=== PATIENT | male | born 2000 | race Caucasian/White ===

== ENCOUNTER 2022-12-10 22:42 | Emergency (ER) | payer BC, SELFPAY ==
[2022-12-10 22:44] VITALS: BP 140/78; PULSE 82; RESP 18; TEMP 37.4; O2SAT 97; BMI 23.6
[2022-12-10 23:38] VITALS: BP 119/60; PULSE 80; RESP 18; TEMP 36.6; O2SAT 98
--- NOTE | 2022-12-11 00:04 | ED_ITS ---
HPI - Dental/Oral General Chief complaint: Dental/Oral Stated complaint: dental pain Time Seen by Provider: 12/10/22 23:41 Source: patient Mode of arrival: ambulatory Limitations: no limitations History of Present Illness HPI Narrative: This is a 22-year-old male presenting with pain to his lower right molar X 3 weeks worsening over the past few days. Patient tells me that this pain has been boring in nature however over the past few days has become slightly more persistent. Patient tells me he has a known cavity to that tooth. Denies any direct trauma to this tooth. Denies difficulty opening his mouth, changes in voice, changes in speech or difficulty controlling secretions. He tells me he has had an upper respiratory infection for the past few weeks which he is being treated for with a Z-Babar by his health services at school. Denies fevers, chills, chest pain, shortness of breath, nausea, vomiting. Related Data Previous Rx's Medication Instructions Recorded amoxicillin 875 mg-potassium 1 tab PO BID 10 days #20 tabs 12/11/22 clavulanate 125 mg tablet prednisone 20 mg tablet 40 mg PO DAILY 5 days #10 tabs 12/11/22 Allergies Allergy/AdvReac Type Severity Reaction Status Date / Time shellfish derived Allergy Unknown Verified 12/10/22 22:49 Review of Systems Review of Systems: Constitutional : No Weight loss, No Fever, No Chills, No Fatigue, No Malaise ENT/Mouth : No sore throat, No Rhinorrhea, + tooth pain Eyes: No Eye Pain, No Swelling, No Redness Cardiovascular : No Chest Pain, No SOB, No Dyspnea on Exertion, No Orthopnea, No Edema, No Palpitations Respiratory : No Cough, No Sputum, No Wheezing Gastrointestinal : No Nausea, No Vomiting, No Diarrhea, No Constipation, No abdominal Pain, No Hematochezia, No Melena Genitourinary : No Dysuria, No Urinary Frequency, No Hematuria, Musculoskeletal : No joint pain, No Myalgias, No Joint Swelling Skin : No Skin Lesions, No rash Neuro : No Weakness, No Numbness, No Dizziness, No Headache Psych : No Anxiety/Panic, No Depression All other systems reviewed and are negative Yes all other systems are reviewed and are negative PMFSH Past Medical History Attestation statement: The following information was validated with the patient. Source: old records reviewed and nursing notes reviewed Social History Social History Advance Directives: No Advance Directives Information Provided: Yes Physical Exam Vital Signs: Vital Signs: Last Vital Signs Temp 97.9 F 12/10/22 23:38 Pulse 80 12/10/22 23:38 Resp 18 12/10/22 23:38 BP 119/60 12/10/22 23:38 Pulse Ox 98 12/10/22 23:38 O2 Del Method 12/10/22 23:38 BMI result Body Mass Index 23.6 vss Appearance: Alert.? Oriented X3.? No acute distress.? Patient speaking in full sentences controlling secretions well. Head: Normocephalic, atraumatic, no step-offs or deformities Eyes: Pupils equal, round and reactive to light.? ENT: Pharynx normal.?No trismus. Midline uvula. B/l tonsils enlarge no exudates. Controlling secretions well. + dental abcess to right lower first molar. Neck: Normal inspection.? Neck supple.? CVS: Normal heart rate and rhythm.? Pulses normal.? Respiratory: No respiratory distress.? Breath sounds normal.? Abdomen: Soft and nontender.? Skin: Skin warm and dry.? Normal skin color.? Normal skin turgor.? Extremities: No lower extremity edema.? No calf ttp. 5/5 strength to bilateral upper and lower extremities Neuro: Oriented X 3.? No motor deficit.? No sensory deficit. CN 2-12 intact Course Reevaluation(s) Reevaluation #1: Fine-needle aspiration successfully done 2 -3 cc purulence serosanguineous fluid expressed., improvement in dental abscess, patient will be discharged home on Augmentin. Advised for him to follow-up with dentist in follow-up with PCP within the next 1-3 days. Advised return with new or worsening symptoms, educated on worrisome signs and symptoms and when to return. Comfortable discharge her Medical Decision Making Medical Decision Making MDM Narrative: 0000 22-year-old male presents with dental pain to lower right molar x3 weeks worsening over the past few days. Pharynx normal.?No trismus. Midline uvula. B/l tonsils enlarge no exudates. Controlling secretions well. + dental abcess to right lower first molar. Concerns for dental abscess. No signs of trismus, or airway compromise no signs of peritonsillar abscess or epiglottitis. Plan at this time fine-needle aspiration. Differential Diagnosis Differential Diagnoses: The differential diagnosis associated with the presentation includes Concerns for dental abscess. No signs of trismus, or airway compromise no signs of peritonsillar abscess or epiglottitis. Admission/Observation Consideration of admission/observation: Escalation of care including admission/observation considered Not indicated Core Measures Measure exclusions: not indicated Critical Care Time Critical Care Time Critical Care Time: No Discharge Plan Discharge Clinical Impression: Dental abscess Patient Disposition: Home, Self-Care Instructions: Dental Abscess (ED), Abscess Incision and Drainage (DC) Additional Instructions: Take your medications as prescribed. If you were prescribed antibiotics today, it is important that you take your medication to their entirety, do not skip any doses, do not finish them early. Follow-up with your primary care provider this week. Return to the emergency department with new or worsening symptoms. Such as fevers, chills, chest pain, shortness of breath, nausea, vomiting, dizziness, headache, vision changes, lethargy, difficulty opening mouth, trouble controlling secretions, changes in voice In case of emergency call 911 You should follow-up with a dentist as soon as possible.If you don't have one call one in the area to make an appointment. [facility] [phone] Prescriptions: New prednisone 20 mg tablet 40 mg PO DAILY 5 Days Qty: 10 0RF amoxicillin-pot clavulanate 875-125 mg tablet 1 tab PO BID 10 Days Qty: 20 0RF Referrals: Physician,Unknown J [Primary Care Provider] - 2 days Stand Alone Forms: Work/School Release
== END 2022-12-11 00:31 | disposition home or self-care (01) ==
PROVIDERS: Emergency Provider Internal Medicine
DX: K04.7 Periapical abscess without sinus (principal); K08.89 Other specified disorders of teeth and supporting structures
CPT/HCPCS: 41800; 99282; 99283